=== PATIENT | female | born 1985 | race Caucasian/White ===

== ENCOUNTER → 2018-11-17 | Outpatient (CLI) | payer MEDICAID ==
--- NOTE | 2018-11-17 10:59 | WOMENS IMAGING REPORT ---
EXAM DESCRIPTION: TRANSVAGINAL ULTRASOUND COMPLETED DATE/TIME: 11/17/2018 10:33 am REASON FOR STUDY: N92.0 MENORRHAGIA WITH REGULAR CYCLE N92.0 EXCESSIVE AND FREQUENT MENSTRUATION WI TH REGULAR CYCLE COMPARISON: None. TECHNIQUE: Dynamic and static grayscale images acquired of the pelvis via transvaginal approach and recorded on PACS. Additional selected color Doppler and spectral images recorded. LIMITATIONS: None. FINDINGS: UTERUS: Contour normal. No mass. ENDOMETRIAL STRIPE: No focal or generalized thickening. No masses. CERVIX: No nabothian cysts. RIGHT OVARY AND DOPPLER: Normal size. A dominant 1.5 x 1.8 x 1.8 cm follicle. Normal arterial vascu lar flow without evidence for torsion. LEFT OVARY AND DOPPLER: Normal size. No worrisome masses. Normal arterial vascular flow without evide nce for torsion. FREE FLUID: Small amount of free fluid in the cul-de-sac may be on a physiologic basis. OTHER: No other significant finding. MEASUREMENTS: UTERUS: 8.6 x 3.5 x 5.3 cm ENDOMETRIAL STRIPE: 13 mm RIGHT OVARY: 3.1 x 2.4 x 3.2 cm LEFT OVARY: 2.9 x 2.2 x 2.3 cm IMPRESSION: 1. A dominant right ovarian follicle. 2. Small amount of free fluid in the cul-de-sac may be on a physiologic basis. 3. Examination is otherwise unremarkable sonographically. TECHNICAL DOCUMENTATION: JOB ID: [id number]- All Rights Reserved Rev Reading location - IP/workstation name: [email or web address]
== END ==
LOC: WI 09:54
PROVIDERS: ATTEND Physician Assistant
DX: N92.0 Excessive and frequent menstruation with regular cycle (principal)
CPT/HCPCS: 76830